=== PATIENT | female | born 1970 | race Hispanic/Latino ===

== ENCOUNTER 2017-08-21 03:36 | Day surgery (SDC) | payer SELFPAY ==
[2017-08-21] MEDS ORDERED: Fentanyl 100 MCG/2 ML VIAL ONE (07:16)
--- NOTE | 2017-08-21 07:25 | HP ---
HISTORY OF PRESENT ILLNESS: Letty Nunes is a 46-year-old female, 2, para 2, past hysterect surjit presents with a 16 hour history of central abdominal pain localizing to her right lower quadrant. She was initially seen in [place] and transferred to [facility]. Here CAT scan confirms appendicitis. Appendix dilated 12 mm, inflammatory stranding. No other significant findings. ALLERGIES: None. TOBACCO: None. ALCOHOL: None. MEDICATIONS: Sertraline daily. PAST SURGICAL HISTORY: Hysterectomy. PAST MEDICAL HISTORY: Noncontributory. REVIEW OF SYSTEMS: Ten point noncontributory. PHYSICAL EXAMINATION: VITAL SIGNS: Respiratory rate 18, heart rate 72, blood pressure 120/70. HEENT: Unremarkable. LUNGS: Clear to auscultation. CARDIAC: Regular rate and rhythm without murmur or gallop. ABDOMEN: Soft, tenderness in right lower quadrant with guarding and rebound. EXTREMITIES: Unremarkable. LABS: Sodium 142, potassium 3.2, BUN 70, creatinine 1. Liver function tests normal. White count 14 , hemoglobin 14. ASSESSMENT AND PLAN: Acute appendicitis. I recommend laparoscopic video appendectomy. Risk of infe ction, bleeding, visceral injury explained. She consents.
[2017-08-21] MEDS ORDERED: Bupivacaine HCl 0.5%/Epinephrine 1:200,000/PF 30 ml Vial ONE (07:35)
[2017-08-21] MEDS ORDERED: Scopolamine 1.5 mg/72 hour Patch ONE (07:53)
[2017-08-21] MEDS ORDERED: Ketorolac Tromethamine 30 MG/ML VIAL ONE (07:53)
[2017-08-21] MEDS ORDERED: Midazolam HCl 2 mg/2 ml Vial ONE (07:54)
[2017-08-21] MEDS ORDERED: Piperacillin/Tazobactam 3.375 GM VIAL ONE (08:22)
--- NOTE | 2017-08-21 09:28 | OP ---
DATE OF PROCEDURE: 08/21/2017 PREOPERATIVE DIAGNOSIS: Acute appendicitis. POSTOPERATIVE DIAGNOSIS: Acute appendicitis. PROCEDURE PERFORMED: Laparoscopic video appendectomy. SURGEON: Luis Fernando Sosa M.D. ANESTHESIA: General. Local 0.5% Marcaine with epinephrine, 30 mL. DESCRIPTION OF PROCEDURE: Patient was taken to the operating room where under general anesthesia, Fo lakeisha catheter was placed at the beginning of the procedure, removed at the end. Abdomen was prepared with ChloraPrep, draped in routine fashion. Local anesthetic infiltrated into skin and subcutaneous tissue above each port sites, 30 mL volume used. Infraumbilical incision made and pneumoperitoneum t o 15 mmHg obtained with the Veress needle, replacing it with a 5 port and video laparoscope inserted. Right lateral subcostal incision made and a 5 port placed. Suprapubic incision made and a 12 port placed. Appendix was acutely inflamed. Abdominal cavity grossly normal otherwise. Appendix was gra sped and mesoappendix taken down with the LigaSure to the stump of the appendix, dividing the stump o f the appendix with Endo-LILI blue load stapler. Stapled cecal stump was hemostatic and secure after clips applied. Appendix placed in Endobag and removed and submitted to Pathology. Good hemostasis e nsured. Irrigant and pneumoperitoneum evacuated after suprapubic fascia approximated with 0 Vicryl. All skin incisions approximated with interrupted subdermal 4-0 Monocryl and DermaGlue applied. The patient tolerated the procedure well.
[2017-08-21] MEDS ORDERED: Lidocaine 1% PF 5 ML VIAL ONE ×2 (11:29→11:56)
[2017-08-21] MEDS ORDERED: Ondansetron HCl/PF 4 MG/2 ML Vial ONE ×2 (11:29→11:56)
[2017-08-21] MEDS ORDERED: Labetalol 100 MG/20 ML MDV ONE ×2 (11:29→11:56)
[2017-08-21] MEDS ORDERED: Dexamethasone 20 MG/5 ML VIAL ONE ×2 (11:29→11:56)
[2017-08-21] MEDS ORDERED: Succinylcholine Chloride 20 MG/ML 10 ml SYRINGE FS ONE ×2 (11:29→11:56)
[2017-08-21] MEDS ORDERED: PROPOFOL 200 MG/20 ML VIAL ONE ×2 (11:29→11:56)
[2017-08-21] MEDS ORDERED: Glycopyrrolate 0.2 MG/ML 5 ML SYRINGE ONE ×2 (11:29→11:56)
== END 2017-08-21 12:35 | disposition home or self-care (01) ==
LOC: ERS 03:36 → SDC 07:22
PROVIDERS: ATTEND Specialist
PROC: 0DTJ4ZZ Resection of Appendix, Percutaneous Endoscopic Approach (ICD-10-PCS; principal; 2017-08-21)
DX: K35.3 Acute appendicitis with localized peritonitis (principal)
CPT/HCPCS: 88304; 93005; 96360; 96361; J0131; J0670; J1100; J1885; J2001; J2250; J2405; J2543; J2704; J3010